=== PATIENT | male | born 1940 | race Caucasian/White ===

== ENCOUNTER → 2016-05-01 | Outpatient (CLI) | payer MEDICARE ==
[~2016-05-01] MED LIST: AZEL0.055 EACH NARE; FLUT50SP EACH NARE; IBUP400T20 PO; LISI10TA3 PO; METO25TA3 PO; NORC5TAB PO; OMEP20TA PO; ORPH100T99 PO; PRESCAP6 PO; SIMV40TA PO; UMEC1AER INH; VENTAER INH; ZYRT10CA PO
[2016-05-01 09:11] LABS: HEMATOCRIT 42.6 % (39.0-51.0); MEAN CELL VOLUME 86.2 FL (80.0-100.0); MEAN CORPUSCULAR HEMOGLOBIN 28.5 PG (27.0-34.0); PLATELET COUNT 287 TH/MM3 (150-450); RED BLOOD COUNT 4.94 MIL/MM3 (4.50-5.90); RED CELL DISTRIBUTION WIDTH 14.2 % (11.6-17.2); REVIEW FLAG FINAL; WHITE BLOOD COUNT 7.9 TH/MM3 (4.0-11.0)
[2016-05-01 09:49] LABS: ALKALINE PHOSPHATASE 101 U/L (45-117); ALT (GPT) 28 U/L (12-78); ANION GAP 7 MEQ/L (5-15); AST (GOT) 17 U/L (15-37); BICARBONATE 27.9 MEQ/L (21.0-32.0); BLOOD UREA NITROGEN 12 MG/DL (7-18); CHLORIDE 105 MEQ/L (98-107); GLOMERULAR FILTRATION RATE 82 ML/MIN (>89); GLUCOSE,FASTING 103 MG/DL (74-99); HDL CHOLESTEROL 51.8 MG/DL (40.0-60.0); LDL CHOLESTEROL 88 MG/DL (0-99); LDL CHOLESTEROL DIRECT 102 MG/DL (0-99); POTASSIUM 4.1 MEQ/L (3.5-5.1); SODIUM (NA) 140 MEQ/L (136-145); TOTAL BILIRUBIN ADULT 0.4 MG/DL (0.2-1.0)
== END ==
LOC: PLAB 06:36
PROVIDERS: ATTEND Family Medicine
DX: I25.10 Atherosclerotic heart disease of native coronary artery without angina pectoris (principal); R53.83 Other fatigue; E78.2 Mixed hyperlipidemia; I10 Essential (primary) hypertension
CPT/HCPCS: 36415; 80053; 80061; 83721; 84443; 85027

== ENCOUNTER 2016-06-10 06:55 | Emergency (ER) | payer MEDICARE ==
[~2016-06-10] VITALS: Ht 172.7 cm; Wt 77.0 kg
[~2016-06-10 06:55] MED LIST changes: -IBUP400T20 PO; -NORC5TAB PO; -ORPH100T99 PO
[2016-06-10 06:57] VITALS: BP 188/81; PULSE 78; RESP 18; TEMP 98.7; O2SAT 95
--- NOTE | 2016-06-10 07:25 | PD ---
HPI Chief Complaint: Pain: Acute or Chronic Time Seen by Provider: 07:11 Travel History International Travel<30 days: No Contact w/Intl Traveler<30days: No Traveled to known affect area: No History of Present Illness HPI The patient is a 75-year-old male who presents emergency department for right hip and leg pain. The patient has a history of bladder cancer and is currently undergoing chemotherapy by his urologist, Dr. Andres. The patient states he developed right gluteal pain and right hip pain that radiates down the right leg to the right heel 3 days ago. The pain is better with sitting, worse with lying supine, and minimally aggravated with activity. The patient does have a history of similar pain 30 years ago and states it was secondary to "inflammation". The patient denies any swallow the right lower extremity, however, does state he underwent bladder surgery in March 2016. He denies a previous history of DVT or pulmonary embolism. He denies any numbness, tingling , or weakness of the right lower extremity. He denies any rash in the right lower extremity. The patient does state he is currently on a medicine that is placed in the bladder, states a side effect could be joint pain. The patient has not followed up with his primary physician, Dr. Cheng, or his urologist in regards to his symptoms. PFSH Past Medical History Asthma: No Heart Rhythm Problems: No Cancer: No Cardiovascular Problems: Yes (bypass) High Cholesterol: Yes Chemotherapy: Yes (bladder cancer) Chest Pain: Yes COPD: Yes Coronary Artery Disease: Yes Diabetes: No Diminished Hearing: Yes (BILATERAL) Endocrine: No Gastrointestinal Disorders: Yes GERD: Yes Genitourinary: Yes Hiatal Hernia: No Hypertension: Yes Immune Disorder: No Implanted Vascular Access Dvce: No Kidney Stones: No Musculoskeletal: No Neurologic: No Psychiatric: No Reproductive: No Respiratory: Yes (copd) Immunizations Current: Yes Pneumonia: Yes (06/2013) Renal Failure: No Sleep Apnea: No Ulcer: No Past Surgical History Abdominal Surgery: No Cardiac Surgery: Yes (BYPASS 2002) Coronary Artery Bypass Graft: Yes (1 VESSEL IN 2002) Ear Surgery: No Endocrine Surgery: No Eye Surgery: No Genitourinary Surgery: No Neurologic Surgery: No Oral Surgery: Yes (ALL TEETH REMOVED) Thoracic Surgery: Yes (BYPASS 2002) Other Surgery: Yes (SINUS SURG) Social History Alcohol Use: No Tobacco Use: No (QUIT 1999 30 PACK YEAR HISTORY) Substance Use: No Allergies-Medications (Allergen,Severity, Reaction): Coded Allergies: Sulfa (Verified Allergy, Severe, SOB/ BURNING FEELING IN CHEST, 06/10/16) Reported Meds & Prescriptions Reported Meds & Active Scripts Active Reported Preservision-Lutein (Multiple Vitamins W/ Minerals) 1 Cap 1 Cap PO DAILY Zyrtec Allergy (Cetirizine HCl) 10 Mg Cap 10 Mg PO DAILY Azelastine Nasal [place] (Azelastine HCl) 0.15% [place] 2 [place] EACH NARE DAILY To each nostril. Fluticasone Nasal [place] 50 Mcg/Act Naspr 50 Mcg EACH NARE BID 50 mcg/spray Omeprazole 20 Mg Tab 20 Mg PO DAILY Ventolin Hfa 18 GM Inh (Albuterol Sulfate) 90 Mcg/Act Aer 2 Puff INH Q6H PRN Simvastatin 40 Mg Tab 40 Mg PO HS Lisinopril 10 Mg Tab 10 Mg PO DAILY Metoprolol Tartrate 25 Mg Tab 25 Mg PO DAILY Anoro Ellipta Inh (Umeclidinium/Vilanterol) 62.5-25 Mcg/Act Aero 1 Puff INH DAILY Review of Systems Except as stated in HPI: all other systems reviewed are Neg General / Constitutional: No: Fever Cardiovascular: No: Chest Pain or Discomfort Respiratory: No: Shortness of Breath Gastrointestinal: No: Nausea, Vomiting, Abdominal Pain Genitourinary: Positive: Other (currently being treated for bladder cancer) Musculoskeletal: Positive: Pain, No: Edema Neurologic: No: Paresthesia, Sensory Disturbance Physical Exam Narrative GENERAL: Awake, alert, pleasant 75-year-old male who appears his stated age and is in no acute respiratory distress. Patient is extremely hard of hearing. SKIN: Warm and dry. HEAD: Atraumatic. Normocephalic. EYES: Pupils equal and round. No scleral icterus. No injection or drainage. ENT: No nasal bleeding or discharge. Mucous membranes pink and moist. NECK: Trachea midline. No JVD. CARDIOVASCULAR: Regular rate and rhythm. No murmur appreciated. RESPIRATORY: No accessory muscle use. Clear to auscultation. Breath sounds equal bilaterally. GASTROINTESTINAL: Abdomen soft, non-tender, nondistended. Back: No tenderness over the thoracic or lumbar vertebrae. No CVA tenderness. MUSCULOSKELETAL: No obvious deformities. No clubbing. No cyanosis. No edema. Positive dorsalis pulses bilateral. Plantar flexion and extension of the knee is 5/5. Mild tenderness of the right gluteal region. Mild tenderness of the calves, but negative Homans sign. NEUROLOGICAL: Awake and alert. No obvious cranial nerve deficits. Motor grossly within normal limits. Normal speech. PSYCHIATRIC: Appropriate mood and affect; insight and judgment normal. Data Data Last Documented VS Vital Signs Date Time Temp Pulse Resp B/P Pulse Ox O2 Delivery O2 Flow Rate FiO2 06/10/16 07:51 18 06/10/16 06:57 98.7 78 188/81 95 Room Air Orders Us Leg Venous Doppler (06/10/16 ) Complete Blood Count With Diff (06/10/16 07:19) Basic Metabolic Panel (Bmp) (06/10/16 07:19) Urinalysis - C+S If Indicated (06/10/16 07:19) Ct Abd/Pel W Iv Contrast(Rout) (06/10/16 ) Morphine Inj (Morphine Inj) (06/10/16 07:30) Ondansetron Inj (Zofran Inj) (06/10/16 07:30) Sodium Chlorid 0.9% 500 Ml Inj (Ns 500 M (06/10/16 07:30) Labs Laboratory Tests Test 06/10/16 06/10/16 07:35 09:00 White Blood Count 7.5 TH/MM3 Red Blood Count 4.83 MIL/MM3 Hemoglobin 13.9 GM/DL Hematocrit 40.7 % Mean Corpuscular Volume 84.3 FL Mean Corpuscular Hemoglobin 28.9 PG Mean Corpuscular Hemoglobin 34.2 % Concent Red Cell Distribution Width 14.3 % Platelet Count 281 TH/MM3 Mean Platelet Volume 8.1 FL Neutrophils (%) (Auto) 69.3 % Lymphocytes (%) (Auto) 23.1 % Monocytes (%) (Auto) 5.8 % Eosinophils (%) (Auto) 1.0 % Basophils (%) (Auto) 0.8 % Neutrophils # (Auto) 5.2 TH/MM3 Lymphocytes # (Auto) 1.7 TH/MM3 Monocytes # (Auto) 0.4 TH/MM3 Eosinophils # (Auto) 0.1 TH/MM3 Basophils # (Auto) 0.1 TH/MM3 CBC Comment DIFF FINAL Differential Comment Sodium Level 139 MEQ/L Potassium Level 4.3 MEQ/L Chloride Level 104 MEQ/L Carbon Dioxide Level 26.1 MEQ/L Anion Gap 9 MEQ/L Blood Urea Nitrogen 12 MG/DL Creatinine 0.80 MG/DL Estimat Glomerular Filtration 94 ML/MIN Rate Random Glucose 103 MG/DL Calcium Level 8.6 MG/DL Urine Color LIGHT-YELLOW Urine Turbidity CLEAR Urine pH 7.0 Urine Specific [place] 1.005 Urine Protein NEG mg/dL Urine Glucose (UA) NEG mg/dL Urine Ketones NEG mg/dL Urine Occult Blood NEG Urine Nitrite NEG Urine Bilirubin NEG Urine Urobilinogen LESS THAN 2.0 MG/DL Urine Leukocyte Esterase SMALL Urine RBC 1 /hpf Urine WBC 6 /hpf Microscopic Urinalysis Comment CULT NOT INDICATED MDM Medical Decision Making Medical Screen Exam Complete: Yes Emergency Medical Condition: Yes Medical Record Reviewed: Yes Interpretation(s) Ultrasound of the right leg is negative for deep venous thrombosis Laboratory Tests Test 06/10/16 06/10/16 07:35 09:00 White Blood Count 7.5 TH/MM3 Red Blood Count 4.83 MIL/MM3 Hemoglobin 13.9 GM/DL Hematocrit 40.7 % Mean Corpuscular Volume 84.3 FL Mean Corpuscular Hemoglobin 28.9 PG Mean Corpuscular Hemoglobin 34.2 % Concent Red Cell Distribution Width 14.3 % Platelet Count 281 TH/MM3 Mean Platelet Volume 8.1 FL Neutrophils (%) (Auto) 69.3 % Lymphocytes (%) (Auto) 23.1 % Monocytes (%) (Auto) 5.8 % Eosinophils (%) (Auto) 1.0 % Basophils (%) (Auto) 0.8 % Neutrophils # (Auto) 5.2 TH/MM3 Lymphocytes # (Auto) 1.7 TH/MM3 Monocytes # (Auto) 0.4 TH/MM3 Eosinophils # (Auto) 0.1 TH/MM3 Basophils # (Auto) 0.1 TH/MM3 CBC Comment DIFF FINAL Differential Comment Sodium Level 139 MEQ/L Potassium Level 4.3 MEQ/L Chloride Level 104 MEQ/L Carbon Dioxide Level 26.1 MEQ/L Anion Gap 9 MEQ/L Blood Urea Nitrogen 12 MG/DL Creatinine 0.80 MG/DL Estimat Glomerular Filtration 94 ML/MIN Rate Random Glucose 103 MG/DL Calcium Level 8.6 MG/DL Urine Color LIGHT-YELLOW Urine Turbidity CLEAR Urine pH 7.0 Urine Specific [place] 1.005 Urine Protein NEG mg/dL Urine Glucose (UA) NEG mg/dL Urine Ketones NEG mg/dL Urine Occult Blood NEG Urine Nitrite NEG Urine Bilirubin NEG Urine Urobilinogen LESS THAN 2.0 MG/DL Urine Leukocyte Esterase SMALL Urine RBC 1 /hpf Urine WBC 6 /hpf Microscopic Urinalysis Comment CULT NOT INDICATED Last Impressions Lower Extremity Ultrasound 06/10/16 0000 Signed Impressions: Service Date/Time: Friday, June 10, 2016 08:02 - CONCLUSION: Negative for deep venous thrombosis. David Cai MD FACR Abdomen/Pelvis CT 06/10/16 0000 Signed Impressions: Service Date/Time: Friday, June 10, 2016 09:21 - CONCLUSION: 1. Hepatic steatosis. 2. Diverticulosis without diverticulitis. 3. Mild osteoporosis of both hips. No fracture or lytic lesions. 4. Stable bilateral renal low densities likely cysts. Sam James MD Differential Diagnosis Differential diagnosis includes sciatica, DVT, metastasis, chemotherapy side effect, claudication, radiculopathy. Narrative Course IV was established, labs are drawn and sent, and the patient was placed on cardiac telemetry monitoring and continuous pulse oximetry monitoring. Ultrasound of the right lower extremity was ordered. CT of the abdomen and pelvis was ordered to evaluate for possible metastasis to the pelvis. The patient was administered morphine, Zofran, and IV fluids. Ultrasound is negative for DVT. CT the abdomen and pelvis reveals no metastasis. The patient 's pain had improved. The patient will be discharged on ibuprofen, [place], and Norflex. He is advised to follow-up with his primary physician and return if symptoms worsen or progress. Diagnosis Primary Impression: Sciatica Qualified Code: M54.31 - Sciatica of right side Patient Instructions: General Instructions Additional Instructions: Please provide a patient a copy of his labs, CT results, and ultrasound results at discharge. Medications as directed. Follow-up with her primary physician. Return if symptoms worsen or progress. Med/Other Pt SpecificInfo: Prescription(s) given Scripts Hydrocodone-Acetaminophen ([place])5-325 mg Tab1 Tab PO Q6H PRN (PAIN) #15 TAB Ref 0 Prov:Damion Palmer MD 06/10/16 Ibuprofen 400 Mg [id number] Mg PO Q6H PRN (PAIN SCALE 1 TO 10) #20 TAB Ref 0 Prov:Damion Palmer MD 06/10/16 Orphenadrine ER 12 HR (Orphenadrine CR)100 Mg [id number] Mg PO Q12HR 14 Days Ref 0 Prov:Damion Palmer MD 06/10/16 Disposition: 01 DISCHARGE HOME Condition: Stable Damion Palmer MD Jun 10, 2016 07:25
[2016-06-10] MEDS ORDERED: MORPHINE SULFATE 4 MG/ML INJ IV PUSH ONE (07:30)
[2016-06-10] MEDS ORDERED: SODIUM CHLORID 0.9% 500 ML INJ 500 ML IV ONE (07:30)
[2016-06-10] MEDS ORDERED: ONDANSETRON HCL 4 MG/2 ML VIAL IV PUSH ONE (07:30)
[2016-06-10 07:47] LABS: AUTOMATED NEUTROPHIL # 5.2 TH/MM3 (1.8-7.7); BASOPHIL # 0.1 TH/MM3 (0-0.2); BASOPHIL % 0.8 % (0.0-2.0); EOSINOPHIL # 0.1 TH/MM3 (0-0.4); HEMATOCRIT 40.7 % (39.0-51.0); HEMO FLAGS DIFF FINAL; LYMPH % 23.1 % (9.0-44.0); LYMPHOCYTE # 1.7 TH/MM3 (1.0-4.8); MEAN CELL VOLUME 84.3 FL (80.0-100.0); MEAN CORPUSCULAR HEMOGLOBIN 28.9 PG (27.0-34.0); MEAN CORPUSCULAR HGB CONC 34.2 % (32.0-36.0); MONO % 5.8 % (0.0-8.0); NEUT % 69.3 % (16.0-70.0); PLATELET COUNT 281 TH/MM3 (150-450); RED BLOOD COUNT 4.83 MIL/MM3 (4.50-5.90); RED CELL DISTRIBUTION WIDTH 14.3 % (11.6-17.2); WHITE BLOOD COUNT 7.5 TH/MM3 (4.0-11.0)
[2016-06-10 07:51] VITALS: RESP 18
[2016-06-10 08:04] LABS: BICARBONATE 26.1 MEQ/L (21.0-32.0); POTASSIUM 4.3 MEQ/L (3.5-5.1)
--- NOTE | 2016-06-10 09:08 | RADRPT ---
EXAM DATE/TIME: 06/10/2016 08:02 [facility] COMPARISON: No previous studies available for comparison. INDICATIONS : Right leg pain. MEDICAL HISTORY : Hypercholesterolemia. Gastroesophageal reflux disease. Chronic obstructive pulmonary disease. Sync ope. Hypertension. Dyspnea. Bladder cancer. Chemotherapy. SURGICAL HISTORY : Oral surgery. CABG. Sinus surgery. ENCOUNTER: Initial ACUITY: 1 day PAIN SCORE: 3/10 LOCATION: Right leg. TECHNIQUE: Venous ultrasound of the leg was performed from the inguinal ligament to the proximal calf. Real-nasra e, color Doppler and spectral tracing, compression and augmentation techniques were used. FINDINGS: There is normal compressibility of the deep venous system from the inguinal region to the proximal ca lf. No echogenic clot is seen in the lumen of the common femoral, femoral, popliteal, and posterior tibial veins. There is a normal response of the venous system to proximal and distal augmentation an d respiration. CONCLUSION: Negative for deep venous thrombosis. David Cai MD FACR on June 10, 2016 at 9:05 Board Certified Radiologist. This report was verified electronically.
[2016-06-10 09:18] LABS: BLOOD, URINE NEG (NEG); COMMENT (UR) CULT NOT INDICATED; CULTURE IF INDICATED CULT NOT INDICATED; GLUCOSE,URINE NEG (NEG); KETONE, URINE NEG (NEG); NITRITE,URINE NEG (NEG); URINE COLOR LIGHT-YELLOW (YELLW/STRAW)
--- NOTE | 2016-06-10 09:44 | RADRPT ---
EXAM DATE/TIME: 06/10/2016 09:21 [facility] COMPARISON: CT ABDOMEN & PELVIS W CONTRAST, March 18, 2016, 10:44. INDICATIONS : Right hip pain. History of bladder cancer. IV CONTRAST: 100 cc Omnipaque 350 (iohexol) IV ORAL CONTRAST: No oral contrast ingested. RADIATION DOSE: 8.18 CTDIvol (mGy) MEDICAL HISTORY : Hypertension. Chronic obstructive pulmonary disease. Carcinoma, bladder.Coronary artery disease. SURGICAL HISTORY : CABG ENCOUNTER: Initial ACUITY: 4 - 6 days PAIN SCALE: 8/10 LOCATION: Right hip. TECHNIQUE: Volumetric scanning of the abdomen and pelvis was performed. Using automated exposure control and ad justment of the mA and/or kV according to patient size, radiation dose was kept as low as reasonably achievable to obtain optimal diagnostic quality images. FINDINGS: LOWER LUNGS: The visualized lower lungs are clear. Calcified pleural plaques in the right lung base. LIVER: Decreased density without lesion. There is no dilation of the biliary tree. No calcified gallstones . SPLEEN: Normal size without lesion. PANCREAS: Within normal limits. KIDNEYS: Normal in size and shape. There is no mass, stone or hydronephrosis. Bilateral renal low densities. ADRENAL GLANDS: Within normal limits. VASCULAR: There is no aortic aneurysm. BOWEL/MESENTERY: Diverticulosis without diverticulitis.. There is no free intraperitoneal air or fluid. ABDOMINAL WALL: Within normal limits. RETROPERITONEUM: There is no lymphadenopathy. BLADDER: No wall thickening or mass. Masses are not seen on current study. REPRODUCTIVE: Within normal limits. INGUINAL: There is no lymphadenopathy or hernia. MUSCULOSKELETAL: Degenerative changes lower lumbar spine and both hips. CONCLUSION: 1. Hepatic steatosis. 2. Diverticulosis without diverticulitis. 3. Mild osteoporosis of both hips. No fracture or lytic lesions. 4. Stable bilateral renal low densities likely cysts. Sam James MD on June 10, 2016 at 9:37 Board Certified Radiologist. This report was verified electronically.
[2016-06-10] MEDS ORDERED: NORC5TAB PO (09:53)
[2016-06-10] MEDS ORDERED: IBUP400T20 PO (09:53)
[2016-06-10] MEDS ORDERED: ORPH100T99 PO (09:53)
[2016-06-10] MEDS ORDERED: KETOROLAC TROMETHAMINE 30 MG/ML (IVP) VIAL IV PUSH ONE (10:00)
[2016-06-10] MEDS ORDERED: IOHEXOL 350 MG/ML 10 ML VIAL (for RAD DIAG) IV ONE (11:49)
== END 2016-06-10 10:48 | disposition home or self-care (01) ==
LOC: NEPE 06:55
DX: M54.31 Sciatica, right side (principal); E78.00 Pure hypercholesterolemia, unspecified; I10 Essential (primary) hypertension; M79.604 Pain in right leg
CPT/HCPCS: 74177; 80048; 81001; 85025; 93971; 96361; 96374; 96375; 99284; J1885; J2270; J2405; J7040; Q9967